=== PATIENT | female | born 1980 | race Caucasian/White ===

== ENCOUNTER 2018-12-07 10:32 | Emergency (ER) | payer SELFPAY ==
[~2018-12-07] VITALS: Ht 152.4 cm; Wt 61.2 kg
[2018-12-07 10:58] VITALS: BP 145/85
[2018-12-07] MEDS ORDERED: ACETAMINOPHEN 325 MG TABLET PO ONE (11:30)
[2018-12-07] MEDS ORDERED: IBUPROFEN 600 MG TABLET PO ONE ×2 (11:49→12:00)
== END 2018-12-07 14:19 | disposition home or self-care (01) ==
LOC: ER 10:36
DX: N63.11 Unspecified lump in the right breast, upper outer quadrant (principal)
CPT/HCPCS: 76642; 99284; A4606; Z7610

== ENCOUNTER 2019-08-28 11:47 | Emergency (ER) | payer MEDICAID ==
[~2019-08-28] VITALS: Ht 167.6 cm; Wt 52.6 kg
[2019-08-28] MEDS ORDERED: HYDROCODONE/APAP 5/325MG 1 EACH TABLET PO ONE (12:00)
--- NOTE | 2019-08-28 12:00 | NUR ---
PATIENT BIB [id number] FROM [facility] WITH C/O OF WEAKNESS AND UNABLE TO WALK 2x DAYS. PT. HAS A NOTICEABLY LARGER RIGHT BREAST THAN LEFT. PT CONNECTED TO MONITOR AND IS AWAITING MD CORDERO. WILL CONTINUE TO MONITOR.
[2019-08-28] MEDS ORDERED: HYDROCODONE/APAP 5/325MG 1 EACH TABLET ONE (12:05)
--- NOTE | 2019-08-28 13:43 | NUR ---
PERFORMED VAGINAL EXAMINATION
[2019-08-28 14:35] VITALS: BP 129/79
--- NOTE | 2019-08-28 14:35 | NUR ---
Patient given written and verbal discharge instructions. Patient verbalizes understanding of instructions. Patient is ambulatory with steady gait. Refuses offer of [facility] placement. Patient given list of available shelters in surrounding area.
== END 2019-08-28 14:36 | disposition home or self-care (01) ==
LOC: ER 11:52
DX: R53.1 Weakness (principal); J45.909 Unspecified asthma, uncomplicated; F32.9 Major depressive disorder, single episode, unspecified; F41.9 Anxiety disorder, unspecified; Z85.3 Personal history of malignant neoplasm of breast; Z88.1 Allergy status to other antibiotic agents; Z88.2 Allergy status to sulfonamides; Z59.0 Homelessness; Z95.5 Presence of coronary angioplasty implant and graft
CPT/HCPCS: 71100-TC; 72100-TC; 84703-TC